=== PATIENT | female | born 1940 | race Two or more races ===

== ENCOUNTER 2023-03-11 16:27 | Emergency (ER) | payer OTHER ==
[~2023-03-11] VITALS: Ht 165.1 cm; Wt 104.0 kg
[2023-03-11 16:27] VITALS: O2SAT 100
[2023-03-11 16:44] VITALS: BP 96/35; PULSE 95; RESP 18
[2023-03-11] MEDS ORDERED: SODIUM BICARBONATE 8.4% INJ 50ML SYRINGE ONE ×2 (16:48→16:59)
[2023-03-11] MEDS ORDERED: EPINEPHrine HCL 1 MG/10 ML SYRG ONE (17:01)
== END 2023-03-11 17:03 ==
LOC: ER 16:27 → EDBD 16:27 → ER 17:03
DX: I46.9 Cardiac arrest, cause unspecified (principal); R06.89 Other abnormalities of breathing
CPT/HCPCS: 31500; 87070; 87205; 92950; 99291; J0171; 36600; 82805